=== PATIENT | female | born 1995 | race Caucasian/White ===

== ENCOUNTER 2017-02-20 11:09 | Observation (INO) | payer OTHER ==
[~2017-02-20] VITALS: Ht 144.8 cm; Wt 81.6 kg
[~2017-02-20 11:09] MED LIST: BENZ0.5T6 PO; DIPH25CA66 PO; FLUT50SP13; GUAI600T23 PO; HYDR5SOL PO; LEVA1NEB5 NEB; LEVAAER4 IN; LEVE250T3 PO; ONDA4TAB8 PO; [UNRECOGNIZED DRUG - OTHER] INH
[2017-02-20] MEDS ORDERED: SODIUM CHLORIDE 0.9% 1,000 ML IVB ONE (13:10)
[2017-02-20] MEDS ORDERED: diphenhdrAMINE HCL 50 MG/1 ML VL IV ONE ×2 (13:15→16:00)
[2017-02-20] MEDS ORDERED: ONDANSETRON HCL 4 MG/2 ML VIAL ONE (13:31)
[2017-02-20] MEDS ORDERED: ONDANSETRON HCL 4 MG/2 ML VIAL IV ONE ×2 (13:45→14:45)
[2017-02-20 14:00] LABS: Basophils # (auto) 0 uL; Basophils % (auto) 0.4 % (0.0-2.0); DEFINITIVE VIEW TRANSMISSION; Eosinophils # (auto) 0.1 uL; Eosinophils % (auto) 0.5 % (0.0-7.0); Hematocrit 40.4 % (36.0-46.0); Lymphocytes # (auto) 2.5 uL; Lymphocytes % (auto) 19.3 % (10.0-50.0); Mean Corpuscular Hgb Conc. 32.3 g/dL (32.0-36.0); Mean Corpuscular Volume 77.5 fL (80.0-100.0); Mean Platelet Volume 8.6 fL (7.4-10.4); Monocytes # (auto) 0.8 uL; Monocytes % (auto) 6.4 % (0.0-12.0); Neutrophils # (auto) 9.4 uL; Neutrophils % (auto) 73.4 % (37.0-80.0); Platelet Count (auto) 357 10^3/uL (140-450); Red Cell Distribution Width 15.8 % (11.6-16.0); White Blood Cell 12.8 10^3/uL (4.4-10.8)
[2017-02-20 14:09] LABS: INR 0.98 (0.9-1.15); Partial Thromboplastin Time 25.2 sec (22.64-33.71); Prothrombin Time 10.6 sec (9.37-12.3)
[2017-02-20 14:15] LABS: Albumin 3.6 g/dL (3.4-5.0); BUN/Creatinine Ratio 13.5; Bilirubin, Total 0.3 mg/dL (0.2-1.0); Magnesium 2.5 mg/dL (1.6-2.6); Total Protein 7.7 g/dL (6.4-8.2)
[2017-02-20 14:26] LABS: Potassium 3.8 mmol/L (3.5-5.1)
[2017-02-20] MEDS ORDERED: MORPHINE SULF INJ 2 MG/ML SYRINGE 1ML IV ONE (14:45)
[2017-02-20] MEDS ORDERED: diphenhdrAMINE HCL 50 MG/1 ML VL ONE (15:30)
[2017-02-20 15:48] VITALS: BP 134/65
[2017-02-20] MEDS ORDERED: DIAZEPAM 5 MG TAB PO ONE (16:00)
== END 2017-02-20 17:23 | disposition home or self-care (01) | DRG 93 ==
LOC: ER 11:09 → EDBD 11:09 → OVERFLOW 13:11 → ER 17:23
PROVIDERS: ADMIT Family Medicine; ATTEND Family Medicine
DX: G24.9 Dystonia, unspecified (principal); F41.9 Anxiety disorder, unspecified; R53.1 Weakness; Z83.3 Family history of diabetes mellitus; Z82.49 Family history of ischemic heart disease and other diseases of the circulatory system; J45.909 Unspecified asthma, uncomplicated
CPT/HCPCS: 36415; 71010; 80053; 82962; 83735; 85025; 85610; 85730; 96361; 96374; 96375; 96376; 99285; G0378; J1200; J2270; J2405

== ENCOUNTER 2017-03-25 14:17 | Emergency (ER) | payer OTHER ==
[~2017-03-25] VITALS: Ht 160 cm; Wt 81.6 kg
[2017-03-25] MEDS ORDERED: SODIUM CHLORIDE 0.9% 500 ML IV ONE (14:56)
[2017-03-25] MEDS ORDERED: ONDANSETRON HCL 4 MG/2 ML VIAL IV ONE ×2 (15:00→18:15)
[2017-03-25] MEDS ORDERED: diphenhdrAMINE HCL 50 MG/1 ML VL IV ONE ×2 (15:00→18:15)
[2017-03-25] MEDS ORDERED: HYDROmorphone HCL 2 MG/ML VL IV ONE ×2 (15:00→18:15)
[2017-03-25 16:41] VITALS: BP 100/68
[2017-03-25] MEDS ORDERED: LORazepam 2MG/ML-1ML VIAL IV ONE (16:45)
== END 2017-03-25 18:16 | disposition home or self-care (01) ==
LOC: EDBD 14:17 → ER 14:25
DX: G24.9 Dystonia, unspecified (principal); T45.0X5A Adverse effect of antiallergic and antiemetic drugs, initial encounter; G25.89 Other specified extrapyramidal and movement disorders; J45.909 Unspecified asthma, uncomplicated; Z88.8 Allergy status to other drugs, medicaments and biological substances; Z88.0 Allergy status to penicillin; Z90.49 Acquired absence of other specified parts of digestive tract; Y92.89 Other specified places as the place of occurrence of the external cause
CPT/HCPCS: 94761; 96361; 96374; 96375; 96376; 99285; J1170; J1200; J2060; J2405; J7030

== ENCOUNTER 2017-06-01 19:36 | Emergency (ER) | payer OTHER ==
[~2017-06-01] VITALS: Ht 160 cm; Wt 72.6 kg
[2017-06-01] MEDS ORDERED: diphenhdrAMINE HCL 50 MG/1 ML VL IV ONE ×2 (20:00→20:30)
[2017-06-01] MEDS ORDERED: LORazepam 2MG/ML-1ML VIAL IV ONE ×2 (20:00→20:30)
[2017-06-01 20:15] LABS: Basophils # (auto) 0 uL; Basophils % (auto) 0.3 % (0.0-2.0); CONDITION Y; DEFINITIVE SEE PRINTOUT; Eosinophils # (auto) 0.1 uL; Eosinophils % (auto) 1.2 % (0.0-7.0); Hematocrit 40.8 % (36.0-46.0); Hemoglobin 13.4 g/dL (12.2-16.2); Lymphocytes # (auto) 1.4 uL; Mean Corpuscular Hgb Conc. 32.9 g/dL (32.0-36.0); Mean Corpuscular Volume 75.9 fL (80.0-100.0); Mean Platelet Volume 9.3 fL (7.4-10.4); Monocytes # (auto) 0.5 uL; Monocytes % (auto) 5.2 % (0.0-12.0); Neutrophils # (auto) 8.2 uL; Neutrophils % (auto) 79.3 % (37.0-80.0); Platelet Count (auto) 300 10^3/uL (140-450); Red Cell Distribution Width 17.7 % (11.6-16.0); White Blood Cell 10.4 10^3/uL (4.4-10.8)
[2017-06-01 20:31] LABS: Albumin 3.6 g/dL (3.4-5.0); BUN/Creatinine Ratio 18.7; Calcium 8.4 mg/dL (8.5-10.1); Potassium 3.8 mmol/L (3.5-5.1)
[2017-06-01 20:34] LABS: Bilirubin, Total 0.3 mg/dL (0.2-1.0); Total Protein 7.6 g/dL (6.4-8.2)
[2017-06-01 21:55] LABS: Urine RBC None Seen /hpf (0 - 4)
[2017-06-01 21:59] LABS: Urine Bilirubin Negative (Negative); Urine Blood Negative /uL (Negative); Urine Color Yellow (Yellow); Urine Glucose Normal (Normal); Urine Nitrite Negative (Negative); Urine Squamous Epithelial Cell FEW /hpf (<5); Urine Urobilinogen Normal (Negative); Urine pH 6.5 (5.0-8.0)
[2017-06-01 22:02] LABS: Urine Ketone 1+ (Negative)
[2017-06-01] MEDS ORDERED: ONDANSETRON HCL 4 MG/2 ML VIAL IV ONE (23:00)
[2017-06-01] MEDS ORDERED: HYDROmorphone HCL 2 MG/ML VL IV ONE (23:00)
[2017-06-02 01:45] VITALS: BP 112/76
== END 2017-06-02 01:06 | disposition home or self-care (01) ==
LOC: EDBD 19:36 → ER 19:41
DX: G24.02 Drug induced acute dystonia (principal); M79.1 Myalgia; F41.9 Anxiety disorder, unspecified; J45.909 Unspecified asthma, uncomplicated; Z88.0 Allergy status to penicillin; Z88.1 Allergy status to other antibiotic agents; Z88.6 Allergy status to analgesic agent; Z88.8 Allergy status to other drugs, medicaments and biological substances; Z79.899 Other long term (current) drug therapy
CPT/HCPCS: 36415; 80053; 81001; 85025; 96374; 96375; 99284; J1170; J1200; J2060; J2405

== ENCOUNTER 2017-06-20 14:48 | Emergency (ER) | payer OTHER ==
[~2017-06-20] VITALS: Ht 147.3 cm; Wt 72.6 kg
[2017-06-20 15:22] VITALS: BP 121/51
[2017-06-20] MEDS ORDERED: ONDANSETRON HCL 4 MG/2 ML VIAL ONE ×2 (15:32→17:39)
[2017-06-20] MEDS ORDERED: diphenhdrAMINE HCL 50 MG/1 ML VL IV ONE (15:45)
[2017-06-20] MEDS ORDERED: MORPHINE SULFATE 4 MG/ML SYRG IV ONE (15:45)
[2017-06-20] MEDS ORDERED: SODIUM CHLORIDE 0.9% 500 ML IV ONE (15:45)
[2017-06-20] MEDS ORDERED: LORazepam 2MG/ML-1ML VIAL ONE (17:14)
[2017-06-20] MEDS ORDERED: LORazepam 2MG/ML-1ML VIAL IV ONE (17:30)
[2017-06-20] MEDS ORDERED: KETOROLAC TROMETH 30 MG/ML 1ML VIAL IV ONE (17:45)
[2017-06-20] MEDS ORDERED: ONDANSETRON HCL 4 MG/2 ML VIAL IV ONE (17:45)
[2017-06-21] MEDS ORDERED: ONDANSETRON HCL 4 MG/2 ML VIAL IV ONE (10:00)
== END 2017-06-20 19:29 | disposition home or self-care (01) ==
LOC: EDBD 14:48 → ER 14:59
DX: G24.8 Other dystonia (principal); J45.909 Unspecified asthma, uncomplicated; Z88.1 Allergy status to other antibiotic agents; Z88.8 Allergy status to other drugs, medicaments and biological substances; Z90.49 Acquired absence of other specified parts of digestive tract
CPT/HCPCS: 96361; 96374; 96375; 96376; 99284; J1200; J1885; J2060; J2270; J2405; J7030

== ENCOUNTER 2017-08-06 15:44 | Emergency (ER) | payer OTHER ==
[~2017-08-06] VITALS: Ht 144.8 cm; Wt 81.6 kg
[2017-08-06] MEDS ORDERED: SODIUM CHLORIDE 0.9% 500 ML IV ONE (16:10)
[2017-08-06] MEDS ORDERED: methylPREDNISolone SOD SUCC 125 MG/2 ML VL IV ONE (16:15)
[2017-08-06] MEDS ORDERED: diphenhdrAMINE HCL 50 MG/1 ML VL IV ONE (16:15)
[2017-08-06] MEDS ORDERED: ONDANSETRON HCL 4 MG/2 ML VIAL IV ONE (16:15)
[2017-08-06] MEDS ORDERED: LORazepam 2MG/ML-1ML VIAL IV ONE (16:45)
[2017-08-06] MEDS ORDERED: HYDROmorphone HCL 2 MG/ML VL IV ONE (16:45)
[2017-08-06 17:13] VITALS: BP 126/58
== END 2017-08-06 17:28 | disposition home or self-care (01) ==
LOC: EDBD 15:44 → ER 15:51
DX: G24.9 Dystonia, unspecified (principal); J45.909 Unspecified asthma, uncomplicated; Z88.1 Allergy status to other antibiotic agents; Z88.0 Allergy status to penicillin; Z88.8 Allergy status to other drugs, medicaments and biological substances; Z79.899 Other long term (current) drug therapy; Z90.49 Acquired absence of other specified parts of digestive tract
CPT/HCPCS: 94761; 96361; 96374; 96375; 99284; J1170; J1200; J2060; J2405; J2930; J7040

== ENCOUNTER 2017-08-14 18:23 | Emergency (ER) | payer OTHER ==
[~2017-08-14] VITALS: Ht 157.5 cm; Wt 99.8 kg
[2017-08-14] MEDS ORDERED: ONDANSETRON HCL 4 MG/2 ML VIAL IV ONE ×2 (19:15→21:15)
[2017-08-14] MEDS ORDERED: LORazepam 2MG/ML-1ML VIAL IV ONE ×2 (19:15→22:00)
[2017-08-14] MEDS ORDERED: diphenhdrAMINE HCL 50 MG/1 ML VL IV ONE ×2 (19:15→20:45)
[2017-08-14] MEDS ORDERED: NALBUPHINE HCL 10 MG/1ml INJECTION IV ONE (19:45)
[2017-08-14] MEDS ORDERED: diphenhdrAMINE HCL 50 MG/1 ML VL ONE (20:26)
[2017-08-14] MEDS ORDERED: ONDANSETRON HCL 4 MG/2 ML VIAL ONE (21:00)
[2017-08-14] MEDS ORDERED: KETOROLAC TROMETH 30 MG/ML 1ML VIAL IV ONE (21:15)
[2017-08-14] MEDS ORDERED: SUMAtriptan SUCCINATE 6 MG/0.5 ML VL SC ONE (21:15)
[2017-08-14] MEDS ORDERED: DIAZEPAM 5 MG/ML 2ML SYRG IV ONE (21:45)
[2017-08-14 22:01] VITALS: BP 124/75
== END 2017-08-14 22:30 | disposition home or self-care (01) ==
LOC: EDBD 18:23 → ER 18:30
DX: G24.9 Dystonia, unspecified (principal); F41.9 Anxiety disorder, unspecified; G40.909 Epilepsy, unspecified, not intractable, without status epilepticus; G43.909 Migraine, unspecified, not intractable, without status migrainosus; J45.909 Unspecified asthma, uncomplicated; Z90.49 Acquired absence of other specified parts of digestive tract
CPT/HCPCS: 96372; 96374; 96375; 96376; 99284; J1200; J1885; J2060; J2300; J2405; J3030

== ENCOUNTER 2017-08-23 09:32 | Emergency (ER) | payer OTHER ==
[~2017-08-23] VITALS: Ht 170.2 cm; Wt 81.6 kg
[2017-08-23] MEDS ORDERED: LORazepam 2MG/ML-1ML VIAL IV ONE ×2 (10:15→12:15)
[2017-08-23] MEDS ORDERED: HYDROmorphone HCL 2 MG/ML VL IV ONE ×2 (10:15→12:15)
[2017-08-23] MEDS ORDERED: diphenhdrAMINE HCL 50 MG/1 ML VL IV ONE ×2 (10:15→12:15)
[2017-08-23 10:44] VITALS: BP 118/73
[2017-08-23 13:21] LABS: BUN/Creatinine Ratio 12.5; Calcium 8.8 mg/dL (8.5-10.1)
== END 2017-08-23 13:19 | disposition home or self-care (01) ==
LOC: EDBD 09:32 → ER 09:32
DX: G25.5 Other chorea (principal); J45.909 Unspecified asthma, uncomplicated; Z90.89 Acquired absence of other organs; N83.209 Unspecified ovarian cyst, unspecified side; Z88.0 Allergy status to penicillin; Z88.1 Allergy status to other antibiotic agents; Z88.8 Allergy status to other drugs, medicaments and biological substances; Z79.899 Other long term (current) drug therapy
CPT/HCPCS: 36415; 80048; 82542; 96374; 96375; 96376; 99284; J1170; J1200; J2060

== ENCOUNTER 2017-09-17 14:51 | Emergency (ER) | payer OTHER ==
[~2017-09-17] VITALS: Ht 144.8 cm; Wt 86.2 kg
[2017-09-17] MEDS ORDERED: LORazepam 2MG/ML-1ML VIAL ONE ×3 (15:46→18:05)
[2017-09-17 16:12] VITALS: BP 112/75
[2017-09-17] MEDS ORDERED: ONDANSETRON HCL 4 MG/2 ML VIAL IV ONE ×2 (16:45→19:30)
[2017-09-17] MEDS ORDERED: diphenhdrAMINE HCL 50 MG/1 ML VL ONE (18:05)
[2017-09-17] MEDS ORDERED: diphenhdrAMINE HCL 50 MG/1 ML VL IV ONE (18:30)
[2017-09-17] MEDS ORDERED: LORazepam 2MG/ML-1ML VIAL IV ONE (18:30)
[2017-09-17] MEDS ORDERED: SODIUM CHLORIDE 0.9% 1,000 ML IV ONE (18:30)
[2017-09-17] MEDS ORDERED: HYDROmorphone HCL 2 MG/ML VL IV ONE (19:30)
== END 2017-09-17 20:18 | disposition home or self-care (01) ==
LOC: EDBD 14:51 → ER 15:00
DX: G25.5 Other chorea (principal); M62.838 Other muscle spasm; Z90.89 Acquired absence of other organs; Z79.899 Other long term (current) drug therapy; Z88.0 Allergy status to penicillin; Z88.1 Allergy status to other antibiotic agents; Z88.6 Allergy status to analgesic agent; Z88.8 Allergy status to other drugs, medicaments and biological substances
CPT/HCPCS: 96361; 96374; 96375; 96376; 99285; J1170; J1200; J2060; J2405; J7030

== ENCOUNTER 2017-11-13 12:20 | Emergency (ER) | payer OTHER ==
[~2017-11-13] VITALS: Ht 144.8 cm; Wt 78.9 kg
[~2017-11-13 12:20] MED LIST changes: -ONDA4TAB8 PO; +[UNRECOGNIZED DRUG - CODE] PO
[2017-11-13] MEDS ORDERED: LORazepam 2MG/ML-1ML VIAL IV ONE ×2 (14:00→16:00)
[2017-11-13] MEDS ORDERED: diphenhdrAMINE HCL 50 MG/1 ML VL IV ONE ×2 (14:00→16:00)
[2017-11-13] MEDS ORDERED: HYDROmorphone HCL 2 MG/ML VL IV ONE ×2 (15:30→17:30)
[2017-11-13] MEDS ORDERED: ONDANSETRON HCL 4 MG/2 ML VIAL IV ONE ×3 (15:30→18:30)
[2017-11-13] MEDS ORDERED: KETOROLAC TROMETH 30 MG/ML 1ML VIAL IV ONE (18:30)
[2017-11-13 18:37] VITALS: BP 107/77
== END 2017-11-13 19:34 | disposition home or self-care (01) ==
LOC: EDBD 12:20 → ER 12:20
DX: G24.9 Dystonia, unspecified (principal); J45.909 Unspecified asthma, uncomplicated; M79.1 Myalgia; Z88.1 Allergy status to other antibiotic agents; Z88.8 Allergy status to other drugs, medicaments and biological substances; Z90.49 Acquired absence of other specified parts of digestive tract
CPT/HCPCS: 96374; 96375; 96376; 99284; J1170; J1200; J1885; J2060; J2405

== ENCOUNTER 2017-12-10 12:45 | Observation (INO) | payer BC, OTHER ==
[~2017-12-10] VITALS: Ht 144.8 cm; Wt 86.2 kg
[~2017-12-10 12:45] MED LIST changes: +ONDA-101 PO; -[UNRECOGNIZED DRUG - CODE] PO
[2017-12-10] MEDS ORDERED: SODIUM CHLORIDE 0.9% 1,000 ML IVB ONE (13:19)
[2017-12-10] MEDS ORDERED: LORazepam 2MG/ML-1ML VIAL IV ONE ×2 (13:30→15:00)
[2017-12-10] MEDS ORDERED: ONDANSETRON HCL 4 MG/2 ML VIAL IV ONE ×2 (13:30→16:45)
[2017-12-10 14:40] VITALS: BP 118/65
[2017-12-10] MEDS ORDERED: diphenhdrAMINE HCL 50 MG/1 ML VL IV ONE ×3 (14:45→17:15)
[2017-12-10] MEDS ORDERED: MORPHINE SULFATE 10 MG/ML INJ 1ML SDV IV ONE (16:45)
== END 2017-12-10 17:56 | disposition home or self-care (01) | DRG 93 ==
LOC: EDBD 12:45 → ER 12:45 → OVERFLOW 13:21 → ER 17:56
PROVIDERS: ADMIT Family Medicine; ATTEND Family Medicine
DX: G24.9 Dystonia, unspecified (principal); J45.909 Unspecified asthma, uncomplicated; M62.838 Other muscle spasm; Z86.711 Personal history of pulmonary embolism; Z83.3 Family history of diabetes mellitus; Z82.49 Family history of ischemic heart disease and other diseases of the circulatory system
CPT/HCPCS: 96361; 96374; 96375; 96376; 99285; G0378; J1200; J2060; J2270; J2405; J7030

== ENCOUNTER 2019-01-22 12:23 | Emergency (ER) | payer BC ==
[~2019-01-22] VITALS: Ht 144.8 cm; Wt 79.4 kg
[2019-01-22] MEDS ORDERED: LORazepam 2MG/ML-1ML VIAL IV ONE ×4 (13:15→23:45)
[2019-01-22] MEDS ORDERED: MORPHINE SULFATE 4 MG/ML SYR/VIAL IV ONE ×3 (14:45→22:00)
[2019-01-22] MEDS ORDERED: ONDANSETRON HCL 4 MG/2 ML VIAL IV ONE ×2 (14:45→19:00)
[2019-01-22] MEDS ORDERED: diphenhdrAMINE HCL 50 MG/1 ML VL IV ONE ×4 (14:45→23:45)
[2019-01-22] MEDS ORDERED: SODIUM CHLORIDE 0.9% 1,000 ML IV ONE (16:15)
[2019-01-23] MEDS ORDERED: LORazepam 2MG/ML-1ML VIAL IV ONE ×5 (00:30→09:30)
[2019-01-23] MEDS ORDERED: diphenhdrAMINE HCL 50 MG/1 ML VL IV ONE ×6 (00:30→09:30)
[2019-01-23] MEDS ORDERED: diphenhdrAMINE HCL 50 MG/1 ML VL ONE (00:52)
[2019-01-23] MEDS ORDERED: LORazepam 2MG/ML-1ML VIAL ONE (00:52)
[2019-01-23] MEDS ORDERED: HYDROmorphone HCL 2 MG/ML VL IV ONE (03:15)
[2019-01-23 06:47] LABS: Partial Thromboplastin Time 28.1 sec (23.78-33.04); Prothrombin Time 10.7 sec (9.27-12.13)
[2019-01-23 06:49] LABS: Anion Gap 7 (5-15); Blood Urea Nitrogen 7 mg/dL (7-18); Calcium 7.6 mg/dL (8.5-10.1); Carbon Dioxide 23 mmol/L (21-32); Chloride 113 mmol/L (98-107); Glucose 72 mg/dL (74-106); Magnesium 2.2 mg/dL (1.6-2.6); Potassium 3.5 mmol/L (3.5-5.1); Sodium 143 mmol/L (136-145)
[2019-01-23 06:51] LABS: Alanine Aminotransferase 17 U/L (13-56); Aspartate Aminotransferase 17 U/L (15-37); BUN/Creatinine Ratio 8.8; GFR African American 113 mL/min; GFR Non-African American 94 mL/min
[2019-01-23 06:56] LABS: Alkaline Phosphatase 66 U/L (45-117); Bilirubin, Total 0.5 mg/dL (0.2-1.0); Creatine Kinase IFCC 63 U/L (26-192); Total Protein 6.2 g/dL (6.4-8.2)
[2019-01-23 07:01] LABS: Basophils # (auto) 0 uL; Basophils % (auto) 0.5 % (0.0-2.0); Eosinophils # (auto) 0.1 uL; Eosinophils % (auto) 2.3 % (0.0-7.0); Lymphocytes # (auto) 1.5 uL; Mean Corpuscular Hemoglobin 29.5 pg (28.0-32.0); Mean Corpuscular Hgb Conc. 33.4 g/dL (32.0-36.0); Mean Corpuscular Volume 88.2 fL (80.0-100.0); Monocytes # (auto) 0.4 uL; Monocytes % (auto) 7.8 % (0.0-12.0); Neutrophils # (auto) 3.6 uL; Neutrophils % (auto) 63.4 % (37.0-80.0); Platelet Count (auto) 171 10^3/uL (140-450); Red Blood Cells 4.42 10^6/uL (4.0-5.20); Red Cell Distribution Width 15.1 % (11.8-14.3); White Blood Cell 5.6 10^3/uL (4.4-10.8)
[2019-01-23] MEDS ORDERED: SUMAtriptan SUCCINATE 6 MG/0.5 ML VL SC ONE (07:15)
[2019-01-23 08:20] VITALS: BP 95/66
== END 2019-01-23 09:43 | disposition home or self-care (01) ==
LOC: EDBD 12:23 → ER 12:23
DX: S39.012A Strain of muscle, fascia and tendon of lower back, initial encounter (principal); G24.8 Other dystonia; G43.909 Migraine, unspecified, not intractable, without status migrainosus; J45.909 Unspecified asthma, uncomplicated; N83.209 Unspecified ovarian cyst, unspecified side; X58.XXXA Exposure to other specified factors, initial encounter; Y93.89 Activity, other specified; Y99.8 Other external cause status; Y92.89 Other specified places as the place of occurrence of the external cause
CPT/HCPCS: 36415; 71045; 72131; 80053; 82550; 83735; 83880; 84443; 84484; 85025; 85610; 85730; 96374; 96375; 96376; 99284; J1170; J1200; J2060; J2270; J2405; J7030